=== PATIENT | female | born 2000 | race Two or more races ===

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

== ENCOUNTER 2019-01-12 17:28 | Emergency (ER) | payer OTHER ==
[~2019-01-12] VITALS: Ht 157.5 cm; Wt 43.5 kg
[2019-01-12 17:35] VITALS: Ht 157.5 cm; Wt 43.5 kg
[2019-01-12 18:51] LABS: BASOPHIL % 0.5 % (0-2); PLATELET COUNT 181 x10^3mcL (130-400)
[2019-01-12 18:52] LABS: RED CELL DISTRIBUTION WIDTH 14.7 % (11.5-14.5)
[2019-01-12 19:29] LABS: CALCIUM 8.3 mg/dL (8.5-10.1); CARBON DIOXIDE 24.9 mmol/L (21-32); CHLORIDE SERUM 102 mmol/L (98-107); CREATININE SERUM 0.4 mg/dL (0.6-1.0); GFR1 > 60 mL/min; GLUCOSE SERUM 84 mg/dL (74-106); POTASSIUM SERUM 3.7 mmol/L (3.5-5.1); SODIUM SERUM 137 mmol/L (136-145)
[2019-01-12 19:36] LABS: ALBUMIN 3.4 g/dL (3.4-5.0); AST/SGOT 20 U/L (15-37); BILIRUBIN TOTAL 0.44 mg/dL (0.20-1.00)
[2019-01-12 19:37] LABS: ALKALINE PHOSPHATASE 52 U/L (46-116); ALT/SGPT 19 U/L (14-59); TRIGLYCERIDES 91 mg/dL (<150)
[2019-01-12 19:38] LABS: CHOLESTEROL 184 mg/dL (<200); CHOLESTEROL/HDL RATIO 1.9; HDL CHOLESTEROL 98 mg/dL (40-60)
[2019-01-12 20:22] LABS: microscopic required? NO
[2019-01-12 20:35] LABS: UA SPECIFIC GRAVITY <=1.005 (1.005-1.035); urine erythrocyte NEGATIVE (NEGATIVE)
[2019-01-12 20:58] VITALS: BP 108/60
== END 2019-01-12 20:58 | disposition home or self-care (01) ==
LOC: ED 17:28
PROVIDERS: Specialist
DX: O98.511 Other viral diseases complicating pregnancy, first trimester (principal); O21.9 Vomiting of pregnancy, unspecified; E86.0 Dehydration; Z3A.13 13 weeks gestation of pregnancy; Z91.040 Latex allergy status; Z98.890 Other specified postprocedural states
CPT/HCPCS: J1200; J2765; J7030

== ENCOUNTER 2019-02-28 20:43 | Emergency (ER) | payer OTHER ==
[~2019-02-28] VITALS: Ht 157.5 cm; Wt 47.2 kg
[2019-02-28 21:09] VITALS: Ht 157.5 cm; Wt 47.2 kg
[2019-03-01 01:10] VITALS: BP 103/55
== END 2019-03-01 01:13 | disposition home or self-care (01) ==
LOC: ED 20:43
DX: O26.892 Other specified pregnancy related conditions, second trimester (principal); M54.2 Cervicalgia; R11.0 Nausea; Z3A.20 20 weeks gestation of pregnancy; Z91.040 Latex allergy status

== ENCOUNTER 2019-10-21 21:53 | Emergency (ER) | payer OTHER ==
[2019-10-21 22:06] VITALS: Ht 157.5 cm
[2019-10-22 01:26] VITALS: BP 116/71
== END 2019-10-22 01:26 | disposition home or self-care (01) ==
LOC: ED 21:53
DX: G43.909 Migraine, unspecified, not intractable, without status migrainosus (principal); G51.0 Bell's palsy; Z91.040 Latex allergy status
CPT/HCPCS: Q0163